=== PATIENT | female | born 1985 | race Asian ===

== ENCOUNTER 2016-10-05 15:24 | Inpatient (IN) | payer SELFPAY ==
[~2016-10-05] VITALS: Ht 163 cm; Wt 80.0 kg
[~2016-10-05 15:24] MED LIST: BUPIVACAINE /PF 0.25% 30 ML VIAL INJ ONE; CEFAZOLIN 1 GM IVPB PREMIX 50 ML IV ONE; LR 1,000 ML IV.SOLN IV ONE; MIDAZOLAM HCL 5 MG/5 ML VIAL ONE; MORPHINE SULFATE 10MG/10ML PF AMP ONE; NS IRRIG SOLN 1000 ML IR ONE
[2016-10-05] MEDS ORDERED: LR 1,000 ML IV SCH ×2 (17:26→19:14)
[2016-10-05 17:46] LABS: BASOPHILS % (AUTO) 0.3 % (0.0-2.0); EOSINOPHILS % (AUTO) 0.1 % (0.0-4.0); HEMATOCRIT 48.6 % (36-48); HEMOGLOBIN 15.9 g/dL (12.0-16.0); LYMPHOCYTES # (AUTO) 2.3 K/uL (1.0-5.5); LYMPHOCYTES % (AUTO) 25.2 % (20.5-51.5); MEAN CORPUSCULAR HEMOGLOBIN 29 pg (27-31); MEAN CORPUSCULAR HGB CONC 33 % (32-36); MEAN CORPUSCULAR VOLUME 88 fL (79.0-98.0); MONOCYTES # (AUTO) 0.5 K/uL (0.0-1.0); MONOCYTES % (AUTO) 5.4 % (1.7-9.3); NEUTROPHILS # (AUTO) 6.4 K/uL (1.8-7.7); PLATELET COUNT (AUTO) 310 K/uL (130-430); RED BLOOD CELL COUNT(AUTO) 5.52 MIL/uL (4.2-6.2); RED CELL DISTRIBUTION WIDTH 13.1 % (9.0-15.0); WHITE BLOOD COUNT (AUTO) 9.2 K/uL (4.8-10.8)
[2016-10-05] MEDS ORDERED: CEFAZOLIN 2 GM IVPB PREMIX 50 ML IV ONE (18:00)
[2016-10-05 18:31] VITALS: BP 120/74; PULSE 98; RESP 18; TEMP 98
[2016-10-05] MEDS ORDERED: OXYTOCIN/NORMAL SALINE 1,000 ML IV ONE ×2 (18:54→20:13)
[2016-10-05] MEDS ORDERED: OXYCODONE/ACETAMINOPHEN 5-325 TABLET PO PRN ×2 (19:00)
[2016-10-05] MEDS ORDERED: ANUSOL 1 EA SUPP.RECT (PREPARATION H) RC PRN (19:00)
[2016-10-05] MEDS ORDERED: LANOLIN 7 GM OINT. TP PRN (19:00)
[2016-10-05] MEDS ORDERED: HYDROcodone/ACETAMIN 5-325 MG TAB (NORCO/ VICODIN) PO PRN (19:00)
[2016-10-05] MEDS ORDERED: MEASLES,MUMPS&RUBELLA VACC/PF 12500 UNIT/0.5 ML VIAL SUBQ PRN (19:00)
[2016-10-05] MEDS ORDERED: HYDROmorphone 1 MG INJ. 1 MG/ML AMPUL IVP PRN ×2 (19:15→19:30)
[2016-10-05] MEDS ORDERED: ONDANSETRON HCL 4 MG/2 ML VIAL IVP PRN ×2 (19:15→19:30)
[2016-10-05] MEDS ORDERED: MEPERIDINE HCL/PF 25 MG/ML DISP.SYRIN IVP PRN ×2 (19:15)
[2016-10-05] MEDS ORDERED: ePHEDrine sulfate 50 MG/ML VIAL IVP PRN (19:15)
[2016-10-05] MEDS ORDERED: HYDROmorphone 2 MG/ML VIAL IVP PRN ×2 (19:15)
[2016-10-05] MEDS ORDERED: NALBUPHINE HCL 10 MG/ML AMP IVP PRN (19:30)
[2016-10-05] MEDS ORDERED: NALOXONE HCL 0.4 MG/ML AMP (NARCAN) IVP PRN (19:30)
[2016-10-05] MEDS ORDERED: DIPHENHYDRAMINE INJ 50 MG/ML VIAL IVP PRN (19:30)
[2016-10-05] MEDS ORDERED: MORPHINE SULFATE 10MG/10ML PF AMP SP SCH (19:30)
[2016-10-05 20:41] VITALS: BP 113/69
[2016-10-05] MEDS ORDERED: TEMAZEPAM 15 MG CAPSULE PO PRN (21:00)
[2016-10-06 06:33] LABS: BASOPHILS % (AUTO) 0.3 % (0.0-2.0); HEMATOCRIT 36.8 % (36-48); HEMOGLOBIN 12.3 g/dL (12.0-16.0); LYMPHOCYTES % (AUTO) 8.7 % (20.5-51.5); MEAN CORPUSCULAR HEMOGLOBIN 30 pg (27-31); MEAN CORPUSCULAR HGB CONC 34 % (32-36); MEAN CORPUSCULAR VOLUME 89 fL (79.0-98.0); MONOCYTES # (AUTO) 0.5 K/uL (0.0-1.0); NEUTROPHILS # (AUTO) 9.9 K/uL (1.8-7.7); PLATELET COUNT (AUTO) 247 K/uL (130-430); RED BLOOD CELL COUNT(AUTO) 4.15 MIL/uL (4.2-6.2); WHITE BLOOD COUNT (AUTO) 11.4 K/uL (4.8-10.8)
[2016-10-06] MEDS: CEFAZOLIN 1 GM IVPB PREMIX 50 ML IV SCH ×3 (10:00→16:00)
[2016-10-06] MEDS: IBUPROFEN 600 MG TABLET PO SCH ×3 (12:00→23:12)
[2016-10-06] MEDS: SIMETHICONE 80 MG TAB.CHEW PO PRN ×2 (16:48→23:12)
[2016-10-06] MEDS: DOCUSATE SODIUM 100 MG CAPSULE PO PRN (23:12)
[2016-10-07] MEDS: IBUPROFEN 600 MG TABLET PO SCH ×4 (05:26→23:51)
[2016-10-07] MEDS: SIMETHICONE 80 MG TAB.CHEW PO PRN (05:26)
[2016-10-08] MEDS: IBUPROFEN 600 MG TABLET PO SCH ×2 (05:47→11:29)
[2016-10-08] MEDS: DOCUSATE SODIUM 100 MG CAPSULE PO PRN (11:29)
== END 2016-10-08 13:20 | disposition home or self-care (01) | DRG 765 ==
LOC: SPU 15:24
PROVIDERS: ADMIT Obstetrics & Gynecology; ATTEND Obstetrics & Gynecology
PROC: 3E0234Z Introduction of Serum, Toxoid and Vaccine into Muscle, Percutaneous Approach (ICD-10-PCS; 2016-10-05)
PROC: 4A0HXCZ Measurement of Products of Conception, Cardiac Rate, External Approach (ICD-10-PCS; 2016-10-05)
PROC: 10D00Z1 Extraction of Products of Conception, Low, Open Approach (ICD-10-PCS; principal; 2016-10-05 17:30)
DX: O36.63X0 Maternal care for excessive fetal growth, third trimester, not applicable or unspecified (principal); O41.03X0 Oligohydramnios, third trimester, not applicable or unspecified; O69.81X0 Labor and delivery complicated by cord around neck, without compression, not applicable or unspecified; Z37.0 Single live birth; Z3A.40 40 weeks gestation of pregnancy; Z23 Encounter for immunization
CPT/HCPCS: 36415; 85025; 86886; 86900; 86901; 94760; J0690; J2250; J2274; J2405; J2590; J3490; J7120